=== PATIENT | female | born 1955 | race Caucasian/White ===

== ENCOUNTER 2016-07-22 12:29 | Emergency (ER) | payer MEDICARE ==
--- NOTE | 2016-07-29 14:37 | ER ---
ADMIT: 07/22/2016 RM/LOC: ER [facility] MR#: [id number] [address] [id number] MELISSA SHAH [address] [place] [id number] Emergency Room Report SEX: F AGE: 60 : 1955 DATE: 07/22/2016 ADDENDUM: CHIEF COMPLAINT: Cough and shortness of breath. HISTORY OF PRESENT ILLNESS: This is a 60-year-old female who is homeless. She has had a cough for the last 2 months. She says she is coughing so hard that it is causing her to have some back pain. Sats are 96% on room air. She is not tachycardic, but does have a temp of 99.1. Lungs are actually clear to auscultation, but this is after coughing. Due to her being homeless, we do have a Social Work consult out to help her out. Prescribing her albuterol and Amoxil, having her push fluids. I highly advised her to quit smoking because she is still smoking half pack daily. I told her to follow up with her primary care physician if worsen. CLINICAL IMPRESSION: Bronchitis. PATRICIA Ellington / Dar Boyd MD / valdemarl JOB #: [id number] CC: Dar Boyd MD, Attending Physician
== END 2016-07-22 14:20 | disposition home or self-care (01) ==
LOC: ER 12:29
DX: J40 Bronchitis, not specified as acute or chronic (principal); J44.9 Chronic obstructive pulmonary disease, unspecified; F31.9 Bipolar disorder, unspecified; F17.210 Nicotine dependence, cigarettes, uncomplicated; Z90.710 Acquired absence of both cervix and uterus; Z79.51 Long term (current) use of inhaled steroids; Z88.1 Allergy status to other antibiotic agents